=== PATIENT | male | born 1970 | race Caucasian/White ===

== ENCOUNTER 2017-10-10 20:27 | Emergency (ER) | payer SELFPAY ==
[~2017-10-10] VITALS: Ht 177.8 cm; Wt 99.8 kg
[2017-10-10 20:50] VITALS: BP 137/89
[2017-10-10 21:27] VITALS: BP 137/89
--- NOTE | 2017-10-10 22:34 | Emergency Room Report ---
History of Present Illness General Chief Complaint: Medical Clearance Source: Patient Present Illness HPI 47-year-old male presents ED for evaluation. Patient is in police custody. He is here for fci clearance. Patient states he feels fine. Denies any pain. Patient states he is a diabetic and did not take his medication today. Accu- Chek in the 300s. Denies abdominal pain. Denies any nausea or vomiting. No other aggravating or relieving factors. Denies any other associated symptoms Allergies: Coded Allergies: No Known Allergies (Unverified , 10/10/17) Patient History Past Medical History: none, DM, HTN Past Surgical History: none Pertinent Family History: none Social History: Denies: smoking, alcohol use, drug use Immunizations: UTD Reviewed Nursing Documentation: PMH: Agreed, PSxH: Agreed Nursing Documentation-PMH Hx Hypertension: Yes Hx Diabetes: Yes Review of Systems All Other Systems: negative except mentioned in HPI Physical Exam Vital Signs Date Time Temp Pulse Resp B/P (MAP) Pulse Ox O2 Delivery O2 Flow Rate FiO2 10/10/17 20:39 98.4 97 16 137/89 96 Room Air 98.4 Sp02 EP Interpretation: reviewed, normal General Appearance: no apparent distress, alert, GCS 15, non-toxic Head: normocephalic, atraumatic Eyes: bilateral eye normal inspection, bilateral eye PERRL ENT: hearing grossly normal, normal pharynx, no angioedema, normal voice Neck: full range of motion, supple/symm/no masses Respiratory: chest non-tender, lungs clear, normal breath sounds, speaking full sentences Cardiovascular #1: regular rate, rhythm, no edema Cardiovascular #2: 2+ carotid (R), 2+ carotid (L), 2+ radial (R), 2+ radial (L) , 2+ dorsalis pedis (R), 2+ dorsalis pedis (L) Gastrointestinal: normal bowel sounds, non tender, soft, non-distended, no guarding, no rebound Rectal: deferred Genitourinary: normal inspection, no CVA tenderness Musculoskeletal: back normal, gait/station normal, normal range of motion, non- tender Neurologic: alert, oriented x3, responsive, motor strength/tone normal, sensory intact, speech normal Psychiatric: judgement/insight normal, memory normal, mood/affect normal, no suicidal/homicidal ideation Reflexes: 3+ bicep (R), 3+ bicep (L), 3+ tricep (R), 3+ tricep (L), 3+ knee (R) , 3+ knee (L) Skin: normal color, no rash, warm/dry, well hydrated Lymphatic: no adenopathy Medical Decision Making Diagnostic Impression: Primary Impression: Medical clearance for incarceration Additional Impression: Diabetes mellitus Qualified Codes: E11.8 - Type 2 diabetes mellitus with unspecified complications ER Course Hospital Course 47-year-old male presents to ED for and fci clearance. states he missed his diabetic meds today Clinical course Patient placed on stretcher. Handcuffs. After initial history, physical exam reveals a male in no acute distress. physical exam was unremarkable. Accu-Chek in the 300s. Given metformin here I believe patient be safely discharged into police custody. Diagnosis - medical clearance for incarceration, diabetes mellitus stable and discharged into police custody Last Vital Signs Date Time Temp Pulse Resp B/P (MAP) Pulse Ox O2 Delivery O2 Flow Rate FiO2 10/10/17 20:39 98.4 97 16 137/89 96 Room Air 98.4 Status: improved Disposition: D/C TO LAW ENFORCEMENT IN CUST Condition: Stable Departure Forms: Usp Clearance Patient Instructions: Type 2 Diabetes Mellitus, Adult, [id number] DOUGLAS ARREGUIN M.D. Oct 10, 2017 22:34
[2017-10-11] MEDS ORDERED: METFORMIN HCL850 M1 ORAL (10:31)
[2017-10-11] MEDS ORDERED: NORVASC5 MG ORAL (10:32)
== END 2017-10-10 21:27 ==
LOC: EMR 21:03
DX: Z02.89 Encounter for other administrative examinations (principal); E11.9 Type 2 diabetes mellitus without complications; Z91.14 Patient's other noncompliance with medication regimen
CPT/HCPCS: 99283

== ENCOUNTER 2017-10-11 10:04 | Emergency (ER) | payer SELFPAY ==
[~2017-10-11] VITALS: Ht 175.3 cm; Wt 95.3 kg
[2017-10-11 10:20] VITALS: BP 146/112
[2017-10-11] MEDS ORDERED: METFORMIN HCL850 M1 ORAL (10:31)
[2017-10-11] MEDS ORDERED: NORVASC5 MG ORAL (10:32)
--- NOTE | 2017-10-11 10:35 | Emergency Room Report ---
History of Present Illness General Chief Complaint: Medical Clearance Source: Patient Present Illness HPI 47yo m Brought in by police for medical clearance Patient has no complaints, but he does report he takes a medication for diabetes twice a day He reports it's 850 mg twice a day but can't be sure about the name of it He also reports he takes a blood pressure medication daily the name of which he cannot recall either He has no medical complaints at all, and he is accompanied by police for an okay to book clearance Allergies: Coded Allergies: No Known Allergies (Unverified , 10/10/17) Patient History Past Medical History: see triage record Reviewed Nursing Documentation: PMH: Agreed, PSxH: Agreed Nursing Documentation-PMH Past Medical History: No History, Except For Hx Hypertension: Yes Hx Diabetes: Yes Review of Systems All Other Systems: negative except mentioned in HPI Physical Exam Vital Signs Date Time Temp Pulse Resp B/P (MAP) Pulse Ox O2 Delivery O2 Flow Rate FiO2 10/11/17 10:07 98.7 100 18 146/112 96 Room Air 98.8 Sp02 EP Interpretation: reviewed, normal General Appearance: no apparent distress, alert, non-toxic Head: normocephalic Eyes: bilateral eye normal inspection, bilateral eye PERRL, bilateral eye EOMI ENT: normal ENT inspection, hearing grossly normal, normal pharynx, no angioedema, normal voice, moist mucus membranes Neck: normal inspection, full range of motion, supple, supple/symm/no masses Respiratory: chest non-tender, lungs clear, normal breath sounds, chest symmetrical, palpation of chest normal Cardiovascular #1: normal peripheral pulses, regular rate, rhythm Cardiovascular #2: 2+ radial (R), 2+ radial (L) Gastrointestinal: normal inspection, non tender, soft, no mass, no guarding, no rebound Rectal: deferred Genitourinary: normal inspection, no CVA tenderness Musculoskeletal: back normal, gait/station normal, normal range of motion, non- tender, no calf tenderness Neurologic: alert, responsive, product/device technologist III-XII nml as tested, motor strength/tone normal, sensory intact, speech normal Psychiatric: judgement/insight normal, memory normal, mood/affect normal, no suicidal/homicidal ideation Skin: normal color, no rash, warm/dry, normal turgor Lymphatic: no adenopathy Medical Decision Making Reaction to Intervention: No change ER Course Patient given prescription for metformin as well as low-dose amlodipine He has no complaints and vitals are unremarkable other than slightly high blood pressure Will give the okay to book with prescriptions for 2 weeks of metformin and amlodipine Last Vital Signs Date Time Temp Pulse Resp B/P (MAP) Pulse Ox O2 Delivery O2 Flow Rate FiO2 10/11/17 10:20 98.8 18 146/112 96 Room Air 98.8 10/11/17 10:07 100 Status: unchanged Disposition: DISC/XFER TO A [facility] Condition: Stable Scripts Amlodipine Besylate (Norvasc) 5 Mg Tablet 5 MG ORAL DAILY for 14 Days, TAB Prov: BRIDGETTE BENITO M.D 10/11/17 Metformin Hcl* (METFORMIN HCL*) 850 Mg Tablet 850 MG ORAL BID for 14 Days, TAB Prov: BRIDGETTE BENITO M.D 10/11/17 BRIDGETTE BENITO M.D Oct 11, 2017 10:35
[2017-10-11 10:49] VITALS: BP 146/112
== END 2017-10-11 11:10 ==
LOC: EMR 11:04
DX: E11.9 Type 2 diabetes mellitus without complications (principal); Z79.84 Long term (current) use of oral hypoglycemic drugs; I10 Essential (primary) hypertension
CPT/HCPCS: 99284